=== PATIENT | male | born 1985 | race Caucasian/White ===

== ENCOUNTER 2022-03-15 09:57 | Day surgery (SDC) | payer OTHER ==
[2022-03-10 13:43] VITALS: BMI 39.2
[2022-03-15] MEDS ORDERED: Lidocaine 1% MPF 2 ML VIAL ONE (10:15)
[2022-03-15] MEDS ORDERED: Fentanyl 100 MCG/2 ML VIAL ONE ×3 (11:22→14:14)
[2022-03-15] MEDS ORDERED: Lidocaine 1% PF 5 ML VIAL ONE (11:42)
[2022-03-15] MEDS ORDERED: Midazolam HCl 2 mg/2 ml Vial ONE (11:42)
[2022-03-15] MEDS ORDERED: Rocuronium Bromide 10 MG/ML (10ML VIAL) ONE (11:42)
[2022-03-15] MEDS ORDERED: PROPOFOL 20 ML ONE ×2 (11:42→13:08)
[2022-03-15] MEDS ORDERED: Ketorolac Tromethamine 30 MG/ML VIAL ONE ×2 (11:42)
[2022-03-15] MEDS ORDERED: Ondansetron PF 4 MG/2 ML Vial ONE (11:42)
[2022-03-15] MEDS ORDERED: SUGAMMADEX SODIUM 200 MG/2 ML VIAL ONE (11:45)
[2022-03-15] MEDS ORDERED: Iopamidol 0 ML ONE (11:58)
[2022-03-15] MEDS ORDERED: CEFAZOLIN 1 GM VIAL ONE (12:08)
[2022-03-15] MEDS ORDERED: Glycopyrrolate 0.2 MG/ML 5 ML SYRINGE ONE (12:26)
[2022-03-15] MEDS ORDERED: Morphine 4 MG/ML VIAL ONE (14:56)
== END 2022-03-15 15:45 | disposition home or self-care (01) ==
LOC: CSHSDC 09:57
PROVIDERS: ATTEND Urology
PROC: 0TC48ZZ Extirpation of Matter from Left Kidney Pelvis, Via Natural or Artificial Opening Endoscopic (ICD-10-PCS; principal; 2022-03-15)
PROC: 0T778DZ Dilation of Left Ureter with Intraluminal Device, Via Natural or Artificial Opening Endoscopic (ICD-10-PCS; principal; 2022-03-15)
DX: N20.0 Calculus of kidney (principal); I10 Essential (primary) hypertension; E66.9 Obesity, unspecified; Z68.39 Body mass index [BMI] 39.0-39.9, adult; Z98.84 Bariatric surgery status
CPT/HCPCS: C2625; J0690; J1885; J2250; J2270; J2405; J2704; J3010; Q9967